=== PATIENT | male | born 1990 ===

== ENCOUNTER 2022-02-21 10:34 | Emergency (ER) | payer SELFPAY ==
[~2022-02-21] VITALS: Ht 170.2 cm; Wt 68.2 kg
[2022-02-21 11:07] VITALS: TEMP 98.1
[2022-02-21] MEDS ORDERED: PRILOTC PO (11:11)
[2022-02-21 11:54] LABS: COLLECTION METHOD CLEAN CATCH
[2022-02-21 11:57] LABS: HEMATOCRIT 40.1 % (42.0-52.0); HEMOGLOBIN 13.9 g/dl (13.5-18.0); MEAN CELL VOLUME 84 fl (80.0-100.0); MEAN CORPUSCULAR HEMOGLOBIN 29 pg (27-31); MEAN CORPUSCULAR HGB CONC 35 g/dl (33.0-37.0); MEAN PLATELET VOLUME 10.1 fl (7.4-10.4); PLATELET COUNT 249 K/mm3 (130-400)
[2022-02-21 12:00] LABS: MUCOUS Present (NOT PRESENT); PH 5 (5-8); SQUAMOUS EPITHELIAL 0-2 /hpf (0-10); URINE APPEARANCE Clear (CLEAR/HAZY); URINE BACTERIA None Seen /hpf (NONE SEEN); URINE BILIRUBIN Negative (NEGATIVE); URINE BLOOD Negative (NEGATIVE); URINE COLOR Yellow (YELLOW); URINE GLUCOSE Negative (NEGATIVE); URINE KETONE Negative (NEGATIVE); URINE LEUKOCYTE ESTERASE Negative (NEGATIVE); URINE NITRATE Negative (NEGATIVE); URINE PROTEIN(semi-quant) Negative (NEGATIVE); URINE RBC 0-2 /hpf (0-2); URINE UROBILINOGEN Negative (NEGATIVE)
[2022-02-21 12:17] LABS: BAND 6 % (0-10); EOSINOPHIL 16 % (0-4); LYMPHOCYTE 24 % (20.0-51.0); NEUTROPHILS 43 % (42.0-75.2); PLATELET ESTIMATE NORMAL (NORMAL)
[2022-02-21 12:25] LABS: BILIRUBIN,TOTAL 0.4 mg/dL (0.2-1.2); C-REACTIVE PROTEIN 0.5 mg/dL (0.00-0.50); CALCIUM 8.5 mg/dL (8.4-10.2); CREATININE, serum 0.71 mg/dL (0.72-1.25); POTASSIUM 3.8 mmol/L (3.5-4.5); TOTAL PROTEIN 6.9 gm/dL (6.2-8.1)
[2022-02-21] MEDS ORDERED: ZOFRAN ODT4 MG PO (13:51)
[2022-02-21 14:00] VITALS: BP 115/73; PULSE 60
== END 2022-02-21 14:02 | disposition home or self-care (01) ==
LOC: COL.ER 10:34
PROVIDERS: Nurse Practitioner
DX: R10.32 Left lower quadrant pain (principal); F17.200 Nicotine dependence, unspecified, uncomplicated; Z28.310 Unvaccinated for COVID-19
CPT/HCPCS: J1170; J2405; J7030

== ENCOUNTER 2022-05-08 14:38 | Emergency (ER) | payer SELFPAY ==
[~2022-05-08] VITALS: Ht 139 cm; Wt 63.6 kg
[~2022-05-08 14:38] MED LIST: PRILOTC PO; ZOFRAN ODT4 MG PO
[2022-05-08 16:00] VITALS: BP 139/91; PULSE 88; TEMP 98.2
[2022-05-08 16:26] LABS: COLLECTION METHOD CLEAN CATCH
[2022-05-08 16:37] LABS: MUCOUS Present (NOT PRESENT); PH 6 (5-8); SQUAMOUS EPITHELIAL None Seen /hpf (0-10); URINE APPEARANCE Clear (CLEAR/HAZY); URINE BACTERIA None Seen /hpf (NONE SEEN); URINE BLOOD Negative (NEGATIVE); URINE COLOR Yellow (YELLOW); URINE GLUCOSE Negative (NEGATIVE); URINE KETONE Negative (NEGATIVE); URINE NITRATE Negative (NEGATIVE); URINE PROTEIN(semi-quant) Negative (NEGATIVE); URINE RBC 0-2 /hpf (0-2); URINE UROBILINOGEN Negative (NEGATIVE)
[2022-05-08] MEDS ORDERED: DOXYCYCLINE 10100 MG PO (17:36)
[2022-05-08] MEDS ORDERED: VOLTAREN 75 DR75 MG PO (17:36)
== END 2022-05-08 18:06 | disposition home or self-care (01) ==
LOC: COL.ER 14:38
PROVIDERS: Family Medicine
DX: N45.1 Epididymitis (principal); Z28.310 Unvaccinated for COVID-19